=== PATIENT | male | born 1995 | race Caucasian/White ===

== ENCOUNTER → 2025-02-19 15:00 | Outpatient (CLI) | payer OTHER, SELFPAY ==
--- NOTE | 2025-02-19 15:02 | DI.US.S_ITS ---
PROCEDURE: US RENAL COMPLETE INDICATIONS: kidney stones TECHNIQUE: Real-time scanning was performed of the kidneys and bladder, with image documentation. COMPARISON: None. FINDINGS: Kidneys: Kidneys are normal in size. Right kidney measures 8.8 cm long; left kidney measures 9.8 cm long. Right renal cortical thickness is 1.2 cm; left renal cortical thickness is 1.1 cm. Renal cortical echotexture is normal. No hydronephrosis or nephrolithiasis. No suspicious solid mass lesions. Bladder: Pre-void bladder volume is 37 mL. Post-void residual is not measured. Pre-void images demonstrate no intraluminal masses or stones. On pre-void images, bilateral ureteral jets are nonvisualized. (Of note, ureteral jets may not be detectable in up to 25% of cases due to insufficient differences in specific gravity between ureteral and bladder urine). Miscellaneous: No free pelvic fluid. IMPRESSION: No renal stones visualized. No hydronephrosis. Dictated by: Claudia Canales M.D. on 02/20/2025 at 20:16 Approved by: Claudia Canales M.D. on 02/20/2025 at 20:17
== END ==
PROVIDERS: PCP Family Medicine; Referring Provider Family Medicine; Visit Provider Family Medicine
DX: N20.0 Calculus of kidney (principal)
CPT/HCPCS: 76770

== ENCOUNTER 2025-03-10 18:05 | Emergency (ER) | payer OTHER, SELFPAY ==
[2025-03-10 18:09] VITALS: BP 127/66; PULSE 54; RESP 14; TEMP 36.4; O2SAT 100; BMI 29.0
--- NOTE | 2025-03-10 18:30 | ED.BACK ---
HPI - Back Pain/Injury General Chief Complaint: Urogenital-Male Stated Complaint: lower back pain/ hot flash x 3 days Time Seen by Provider: 03/10/25 18:10 Source: patient History of Present Illness HPI Narrative: Patient is a 29-year-old with remote history of kidney stone presenting today with left flank pain. He reports he has been ongoing for about 3 days. Denies any kind of injury it is not radiating around his runs not going down his leg it is pinpoint in nature. He has not noticed any hematuria. He has only smoked weed for it. He got a hot flash and felt nauseous earlier today but has never actually thrown. He thinks this feels like his prior kidney stone. He was not evaluated here for that. Related Data Home Medications ?Medication ?Instructions ?Recorded ?Confirmed No Known Home Medications 01/14/25 02/18/25 Allergies Allergy/AdvReac Type Severity Reaction Status Date / Time No Known Drug Allergies Allergy Unverified 03/10/25 18:08 Patient History Social History Smoking Status: Current every day smoker Smoking Status: Current every day smoker tobacco type: vaping Exam Initial Vital Signs Initial Vital Signs: Vital Signs Temperature 97.6 F 03/10/25 18:09 Pulse Rate 54 L 03/10/25 18:09 Respiratory Rate 14 03/10/25 18:09 Blood Pressure 127/66 03/10/25 18:09 Pulse Oximetry 100 03/10/25 18:09 Oxygen Delivery Method Room Air 03/10/25 18:09 GENERAL: Well-appearing, well-nourished] and in [no acute] distress. HEENT: Head atraumatic,EOMI, pupils reactive, face symmetric, [moist] mucous membranes CARDIOVASCULAR: Regular rate and rhythm without murmurs, rubs or gallops. RESPIRATORY: Breath sounds equal bilaterally, no wheezes rales or rhonchi. ABDOMEN: Soft, nontender. Normoactive bowel sounds all 4 quadrants. No guarding or rebound. BACK: No vertebral tenderness no step-off, mild left low lumbar back pain : No CVA tenderness EXTREMITIES: Normal range of motion, no clubbing or edema. Neurovascularly intact NEUROLOGICAL: Alert and oriented x4.Normal gait and speech. SKIN: Warm, dry, no laceration, no petechiae, no rashes or lesions. Course Orders Ordered: Discontinued Medications Ondansetron HCl (Ondansetron 4 Mg/2 Ml Inj) 4 mg IV NOW PRN PRN Reason: Nausea And Vomiting Ondansetron HCl (Ondansetron 4 Mg Odt) 4 mg PO NOW PRN PRN Reason: Nausea And Vomiting Vital Signs Vital signs: Vital Signs - 8 hr 03/10/25 18:09 Temperature 97.6 F Pulse Rate 54 L Respiratory Rate 14 Blood Pressure 127/66 Pulse Oximetry 100 Oxygen Delivery Method Room Air MDM - Back Pain/Injury Lab Data Labs: Urine Dip Bedside Urine Glucose Negative Bedside Urine Bilirubin - Negative Bedside Urine Ketone - Negative Urine Specific [place] 1.025 Bedside Urine Occult Blood - Negative Bedside Urine pH 6.0 Bedside Urine Protein - Negative Bedside Urine Urobilinogen - Negative Bedside Urine Nitrite - Negative Bedside Urine Leukocytes - Negative Esterase MDM Narrative Medical decision making narrative: patient is a 29-year-old male with left lower lumbar pain. He has been point in nature reproducible with palpation. No significant CVA tenderness is abdomen is soft no significant nausea or vomiting. Urinalysis is negative for hematuria and UTI. Long discussion with the patient in regards to ongoing kidney stone workup which and would involve blood work and a CT scan. He reports that he does not like needles does not want a blood draw or IV. He is offered ibuprofen here reports that he will take it at home. I suspect this is more musculoskeletal in nature due to its reproducibility. We discussed returning as needed if symptoms worsen. Discharge Plan Departure Patient Disposition: Home Clinical Impression: Back pain Instructions: DI for Low Back Pain Activity Restrictions/Additional Instructions: *You have been diagnosed with back pain *What to do: at this time suspect that this is musculoskeletal in nature. Recommend heating pad light stretches. However if symptoms are worsening or having worsening back pain increasing nausea vomiting increasing pain then please return to the emergency department for further workup *Continue to take medications as directed ibuprofen 600 mg every 6 hours if needed for [id number] pain Tylenol 1000 mg every 6 hours for [id number] pain *Follow up with your primary care provider in 2-3 days or call [phone] *Return to ER if you should have increasing or persistent pain persistent nausea or vomiting [or] any new, worsening or concerning symptoms Prescriptions: No Action No Known Home Medications Referrals: Sera Lucero MD [Primary Care Provider, [facility]] Stand Alone Forms: Patient Portal/API
== END 2025-03-10 18:39 | disposition home or self-care (01) ==
PROVIDERS: Emergency Provider Emergency Medicine; PCP Family Medicine
DX: M54.50 Low back pain, unspecified (principal); Z87.442 Personal history of urinary calculi
CPT/HCPCS: 81003; 99281; 99282